=== PATIENT | female | born 1945 | race Caucasian/White ===

== ENCOUNTER 2017-03-11 12:00 | Emergency (ER) | payer MEDICARE, OTHER ==
--- NOTE | 2017-03-11 12:28 | ED Physician Documentation ---
Shoulder Injury/Pain - HISTORIAN Historian: patient - HPI Stated Complaint: ARM INJURY S/P FALL Chief Complaint: Shoulder Injury/ Pain Additional Information: she fell 1 week ago, striking her knee and hurting her upper arm/shoulder. Was seen in ER but no xrays taken. The shoulder/upper arm has progressively gotten worse. Onset: days ago Where: other Severity: mild Pain: worse, persistent Context: fall Associated Symptoms: weakness. denies: bruising, tingling, numbness Further Comments: no - ROS CONST: no problems CVS/RESP: none GI/: denies: nausea, vomiting MS/SKIN/LYMPH: none NEURO: none - PAST HX Past History: Rt handed, asthma Immunizations: UTD Allergies/Adverse Reactions: Allergies Allergy/AdvReac Type Severity Reaction Status Date / Time levofloxacin [From Levaquin] Allergy Verified 03/11/17 12:22 voriconazole Allergy Verified 03/11/17 12:23 Home Medications: Ambulatory Orders Medication Instructions Recorded Acetaminophen [Tylenol] 325 mg PO Q4 PRN 03/11/17 Acyclovir [Zovirax] 200 mg PO DAILY 03/11/17 Aspirin [Aaliyah] 162 mg PO DAILY 03/11/17 Atorvastatin Calcium 10 mg PO DAILY 03/11/17 Calcium Carbonate/Vitamin D3 1 each PO DAILY 03/11/17 [Calcium 600 + Vit D Caplet] Esomeprazole Magnesium [Nexium] 20 mg PO DAILY 03/11/17 Fexofenadine HCl [Ginette] 180 mg PO DAILY 03/11/17 Fluticasone Propionate [Flovent 1 puff IH DAILY 03/11/17 Diskus] Fluticasone/Salmeterol [Advair 1 each INH BID 03/11/17 250-50 Diskus] Glucosa Sepulveda 2Kcl/Chondroitin Sepulveda 1 each PO DAILY 03/11/17 [Glucosamine-Chondroitin Cap] Itraconazole [Sporanox] 100 mg PO Q12H 03/11/17 Levothyroxine Sodium [Levoxyl] 88 mcg PO DAILY 03/11/17 Lutein 20 mg PO DAILY 03/11/17 Mag Oxide/D3/Turmeric Rt Xt 2 each PO DAILY 03/11/17 [Magnesium-Vit D3-Turmeric Cap] Mycophenolate Sodium [Mycophenolic 180 mg PO BID 03/11/17 Acid] Nystatin 100,000 unit PO DAILY 03/11/17 [place]-3 Fatty Acids/Fish Oil [Fish 1 each PO DAILY 03/11/17 Oil Concentrate Softgel] Pnv with Ca,No.72/Iron/FA 1 each PO DAILY 03/11/17 [ Plus Tablet] Prednisone 5 mg PO DAILY 03/11/17 Sulfamethoxazole/Trimethoprim 1 each PO [id number] 03/11/17 [Bactrim Ds] Tacrolimus [Prograf] 0.5 mg PO DAILY 03/11/17 Tramadol HCl [Ultram] 50 mg PO 03/11/17 - SOCIAL HX Smoking History: non-smoker Alcohol Use: none Drug Use: none - FAMILY HX Family History: none - VITAL SIGNS Vital Signs: Vital Signs Temp Pulse Resp BP Pulse Ox 97.8 F 63 18 166/68 99 03/11/17 12:00 03/11/17 12:00 03/11/17 12:00 03/11/17 12:00 03/11/17 12:00 - REVIEWED ASSESSMENT Nursing Assessment Reviewed: Yes Vitals Reviewed: Yes Progress - Results/Orders Results/Orders: discussed the need for imaging study. I don't belive an xray would be diagnostic. She has prob injured soft tissue, tendon, ligaments, labrum etc. might benefit from MRI. - Progress Progress: offered solumedrol shot but she declines. Shoulder Injury Physical Exam - Physical Exam General Appearance: no acute distress, alert Shoulder: no dislocation, soft-tissue tenderness, limited ROM, limited abduction , limited flexion. No: bony tenderness, swelling, ecchymosis, deformity, clavicular deformity, AC drop-off, anterior fullness Upper Extremity: no injury below shoulder Neuro: sensation nml, motor nml Vascular: no vascular compromise, motor nml, sensation nml Skin: warm/dry, normal color Head/ENT: nml inspection Respiratory: chest non-tender Abdomen: soft Discharge Clincal Impression: Sprain shoulder/arm Qualifiers: Encounter type: initial encounter Laterality: right Qualified Code(s): S43.401A - Unspecified sprain of right shoulder joint, initial encounter Fall Qualifiers: Encounter type: initial encounter Qualified Code(s): W19.XXXA - Unspecified fall, initial encounter Referrals: Primary Doctor,No [Primary Care Provider] - 2 Days Home Medications: Ambulatory Orders Acetaminophen [Tylenol] 325 mg PO Q4 PRN 03/11/17 Acyclovir [Zovirax] 200 mg PO DAILY 03/11/17 Aspirin [Aaliyah] 162 mg PO DAILY 03/11/17 Atorvastatin Calcium 10 mg PO DAILY 03/11/17 Calcium Carbonate/Vitamin D3 [Calcium 600 + Vit D Caplet] 1 each PO DAILY Esomeprazole Magnesium [Nexium] 20 mg PO DAILY 03/11/17 Fexofenadine HCl [Ginette] 180 mg PO DAILY 03/11/17 Fluticasone Propionate [Flovent Diskus] 1 puff IH DAILY 03/11/17 Fluticasone/Salmeterol [Advair 250-50 Diskus] 1 each INH BID 03/11/17 Glucosa Sepulveda 2Kcl/Chondroitin Sepulveda [Glucosamine-Chondroitin Cap] 1 each PO DAILY Itraconazole [Sporanox] 100 mg PO Q12H 03/11/17 Levothyroxine Sodium [Levoxyl] 88 mcg PO DAILY 03/11/17 Lutein 20 mg PO DAILY 03/11/17 Mag Oxide/D3/Turmeric Rt Xt [Magnesium-Vit D3-Turmeric Cap] 2 each PO DAILY Mycophenolate Sodium [Mycophenolic Acid] 180 mg PO BID 03/11/17 Nystatin 100,000 unit PO DAILY 03/11/17 [place]-3 Fatty Acids/Fish Oil [Fish Oil Concentrate Softgel] 1 each PO DAILY Pnv with Ca,No.72/Iron/FA [ Plus Tablet] 1 each PO DAILY 03/11/17 Prednisone 5 mg PO DAILY 03/11/17 Sulfamethoxazole/Trimethoprim [Bactrim Ds] 1 each PO [id number] 03/11/17 Tacrolimus [Prograf] 0.5 mg PO DAILY 03/11/17 Tramadol HCl [Ultram] 50 mg PO 03/11/17 Condition: Good Disposition: 01 HOME, SELF-CARE Decision to Admit: NO Date of Decison to Admit: 03/11/17 Decision Time: 12:35
[2017-03-11 12:45] VITALS: BP 140/58
== END 2017-03-11 12:45 | disposition home or self-care (01) ==
LOC: ED 12:00
DX: S43.401A Unspecified sprain of right shoulder joint, initial encounter (principal); W19.XXXA Unspecified fall, initial encounter; Y93.9 Activity, unspecified; Y99.9 Unspecified external cause status
CPT/HCPCS: 99283